=== PATIENT | male | born 1995 | race Asian ===

== ENCOUNTER 2017-01-11 16:38 | Emergency (ER) | payer OTHER, SELFPAY ==
[2017-01-11] MEDS ORDERED: Ketorolac Tromethamine 30 MG/ML VIAL ONE (16:46)
--- NOTE | 2017-01-11 17:26 | RAD ---
LEFT ANKLE RADIOGRAPHS THREE VIEWS 01/11/17 PROVIDED CLINICAL HISTORY: Left ankle pain status post injury. FINDINGS: There is a displaced fracture of the talus at the junction of the talar head and neck. There is disp lacement such that there is dislocation at the posterior subtalar joint. No additional fracture is e vident. IMPRESSION: Displaced talar fracture with dislocation involving the posterior subtalar joint. Orthopedic consult ation is recommended. POS: [facility]
== END 2017-01-11 23:34 | disposition home or self-care (01) ==
LOC: MADERS 16:38
DX: S92.102A Unspecified fracture of left talus, initial encounter for closed fracture (principal); S50.312A Abrasion of left elbow, initial encounter; V89.2XXA Person injured in unspecified motor-vehicle accident, traffic, initial encounter
CPT/HCPCS: 96374; J1885